=== PATIENT | female | born 1965 | race Caucasian/White ===

== ENCOUNTER 2021-02-23 22:13 | Emergency (ER) | payer BC, OTHER ==
[~2021-02-23] VITALS: Ht 152.4 cm; Wt 86.6 kg
[2021-02-23 22:34] VITALS: BP 149/79
[2021-02-23] MEDS ORDERED: KETOROLAC 30 MG/ML VIAL IVP ONE (22:45)
--- NOTE | 2021-02-23 22:55 | NUR ---
55 YO F BIB SELF WITH SHARP 8/10 ABD PAIN X8 DAYS. PT DENIES N/V/D AND NO BLOODY STOOLS. PT STATES SHE HAS DRANK HEARBAL TEAS, NO RELIEF OF PAIN. ABD IS ROUND AND SOFT, BOWEL SOUNDS X4 QUADS. TENDER WHEN TOUCHED. PT DENIES FEVER, COUGH AND CHILLS. ALL NEEDS MET AT THIS TIME. BED LOCKED IN LOWEST POSITION, SIDE RAILS X1. DENIES HX AND RX NKA
[2021-02-23 23:05] LABS: BASOPHILS % (AUTO) 0.3 % (0.0-2.0); EOSINOPHILS # (AUTO) 1.5 K/uL (0-0.4); EOSINOPHILS % (AUTO) 13.6 % (0.0-4.0); HEMATOCRIT 37.9 % (36-48); HEMOGLOBIN 12.2 g/dL (12.0-16.0); LYMPHOCYTES # (AUTO) 3.8 K/uL (2.5-16.5); LYMPHOCYTES % (AUTO) 34.3 % (20.5-51.1); MEAN CORPUSCULAR HEMOGLOBIN 28 pg (27-31); MEAN CORPUSCULAR HGB CONC 32 g/dL (33-37); MEAN CORPUSCULAR VOLUME 86.9 fL (80-94); MONOCYTES # (AUTO) 0.6 K/uL (0.8-1.0); MONOCYTES % (AUTO) 5.4 % (1.7-9.3); NEUTROPHILS # (AUTO) 5.2 K/uL (1.8-7.7); NEUTROPHILS % (AUTO) 46.4 % (42.2-75.2); PLATELET COUNT (AUTO) 288 K/uL (140-450); RED BLOOD CELL COUNT(AUTO) 4.37 MIL/uL (4.20-5.40); RED CELL DISTRIBUTION WIDTH 13.5 % (11.6-13.7); WHITE BLOOD COUNT (AUTO) 11.2 K/uL (4.8-10.8)
[2021-02-23 23:31] LABS: ALBUMIN 3.6 g/dL (3.4-5.0); ANION GAP 9.1 (8-16); CARBON DIOXIDE 29.9 mmol/L (21-32); CREATININE 0.8 mg/dL (0.6-1.3); TOTAL BILIRUBIN 0.6 mg/dL (0.0-1.0)
--- NOTE | 2021-02-23 23:46 | NUR ---
pt is resting. equal rise and fall of chest wall. all needs met at this time. bed locked in lowest position, side rails x1.
--- NOTE | 2021-02-24 00:20 | NUR ---
Dr. Rubi examining patient.
[2021-02-24] MEDS ORDERED: DICYCLOMINE HCL LIQUID 20 MG, ALUMINUM HYD/MAG/SIMETHICONE 30 ML, LIDOCAINE VISCOUS 2% ... PO ONE ×3 (00:25)
[2021-02-24] MEDS ORDERED: ALUMINUM HYD/MAG/SIMETHICONE 30 ML UDC ONE (00:31)
[2021-02-24] MEDS ORDERED: DICYCLOMINE HCL LIQUID 10 MG/5 ML UDC ONE (00:31)
[2021-02-24] MEDS ORDERED: IBUP-2213 PO (00:36)
[2021-02-24] MEDS ORDERED: OMEP40EC24 PO (00:36)
[2021-02-24 00:43] VITALS: BP 149/79
--- NOTE | 2021-02-24 00:43 | NUR ---
Patient discharged with v/s stable. Written and verbal after care instructions given and explained. Patient alert, oriented and verbalized understanding of instructions. Ambulatory with steady gait. All questions addressed prior to discharge. ID band removed. Patient advised to follow up with PMD. Rx of ibuprofen and prilosec given. Patient educated on indication of medication including possible reaction and side effects. Opportunity to ask questions provided and answered.
== END 2021-02-24 00:43 | disposition home or self-care (01) ==
LOC: MED 22:13
DX: R10.13 Epigastric pain (principal)
CPT/HCPCS: 36415; 80053; 81002; 83690; 85025; 96374; 99283; J1885